=== PATIENT | female | born 1955 | race Caucasian/White ===

== ENCOUNTER 2017-11-22 13:18 | Emergency (ER) | payer OTHER ==
[~2017-11-22] VITALS: Ht 167.6 cm; Wt 68.0 kg
[2017-11-22] MEDS ORDERED: Pantoprazole So40 MG PO (13:34)
[2017-11-22] MEDS ORDERED: NADO20 (13:34)
[2017-11-22] MEDS ORDERED: FURO40 PO (13:34)
[2017-11-22] MEDS ORDERED: ERYT1OIN LEFTEYE (14:07)
== END 2017-11-22 14:14 | disposition home or self-care (01) ==
LOC: ER 13:18
DX: S05.02XA Injury of conjunctiva and corneal abrasion without foreign body, left eye, initial encounter (principal); F17.210 Nicotine dependence, cigarettes, uncomplicated; Z79.899 Other long term (current) drug therapy; X58.XXXA Exposure to other specified factors, initial encounter
CPT/HCPCS: 99283